=== PATIENT | male | born 1990 | race African-American/Black ===

== ENCOUNTER 2017-02-10 15:21 | Emergency (ER) | payer SELFPAY ==
[~2017-02-10] VITALS: Ht 182.9 cm; Wt 80.0 kg
[2017-02-10 15:23] VITALS: BP 118/73; PULSE 60; RESP 16; TEMP 97.5; O2SAT 99
--- NOTE | 2017-02-10 15:27 | PD ---
Physical Exam Time Seen by Provider: 15:27 Narrative 26 y/o male presents for evaluation of left hip pain for one week. He fell while playing basketball. Vital signs reviewed. Seen at triage desk. Awaiting bed placement. Data Data Last Documented VS Vital Signs Date Time Temp Pulse Resp B/P Pulse Ox O2 Delivery O2 Flow Rate FiO2 02/10/17 15:23 97.5 60 16 118/73 99 Room Air MDM Medical Record Reviewed: Yes Supervised Visit with LEIDY: Nirav Parks February 10, 2017 15:27
--- NOTE | 2017-02-10 16:14 | PD ---
HPI Chief Complaint: Hip Injury Time Seen by Provider: 16:10 Travel History International Travel<30 days: No Contact w/Intl Traveler<30days: No Traveled to known affect area: No History of Present Illness HPI Patient is a 26-year-old male presenting to for evaluation of left flank pain. Pain occurred as result of a fall one week ago. He denies any dysuria, nausea, vomiting, abdominal pain. He has not taken anything to relieve the pain. Pain is exacerbated with movement, relieved by rest. He also states it's painful when he tries to take a bowel movement due to positioning on the toilet seat. [facility] Past Medical History Medical History: Denies Significant Hx Social History Alcohol Use: No Tobacco Use: No Substance Use: No Allergies-Medications (Allergen,Severity, Reaction): Coded Allergies: No Known Allergies (Unverified , 02/10/17) Review of Systems Except as stated in HPI: all other systems reviewed are Neg Musculoskeletal: Positive: Myalgias, Pain Physical Exam Narrative GENERAL: Well-developed, well-nourished, alert male. Resting comfortably in no acute distress. SKIN: Focused skin assessment warm/dry. HEAD: Atraumatic. Normocephalic. EYES: Pupils equal and round. No scleral icterus. No injection or drainage. ENT: No nasal bleeding or discharge. Mucous membranes pink and moist. NECK: Trachea midline. No JVD. CARDIOVASCULAR: Regular rate and rhythm. No murmur appreciated. RESPIRATORY: No accessory muscle use. Clear to auscultation. Breath sounds equal bilaterally. GASTROINTESTINAL: Abdomen soft, non-tender, nondistended. Hepatic and splenic margins not palpable. MUSCULOSKELETAL: No obvious deformities. No clubbing. No cyanosis. No edema. Tenderness to palpation in left lower back/left flank. No rebound, no guarding. NEUROLOGICAL: Awake and alert. No obvious cranial nerve deficits. Motor grossly within normal limits. Normal speech. PSYCHIATRIC: Appropriate mood and affect; insight and judgment normal. Data Data Last Documented VS Vital Signs Date Time Temp Pulse Resp B/P Pulse Ox O2 Delivery O2 Flow Rate FiO2 02/10/17 15:23 97.5 60 16 118/73 99 Room Air Orders Urinalysis - C+S If Indicated (02/10/17 16:07) Ibuprofen (Motrin) (02/10/17 16:15) Cyclobenzaprine (Flexeril) (02/10/17 16:15) Labs Laboratory Tests Test 02/10/17 16:15 Urine Color YELLOW Urine Turbidity CLEAR Urine pH 6.0 Urine Specific [place] 1.021 Urine Protein NEG mg/dL Urine Glucose (UA) NEG mg/dL Urine Ketones NEG mg/dL Urine Occult Blood NEG Urine Nitrite NEG Urine Bilirubin NEG Urine Urobilinogen LESS THAN 2.0 MG/DL Urine Leukocyte Esterase NEG Urine WBC 1 /hpf Urine Mucus FEW /lpf Microscopic Urinalysis Comment CULT NOT INDICATED MDM Medical Decision Making Medical Screen Exam Complete: Yes Emergency Medical Condition: Yes Interpretation(s) Laboratory Tests Test 02/10/17 16:15 Urine Color YELLOW Urine Turbidity CLEAR Urine pH 6.0 Urine Specific [place] 1.021 Urine Protein NEG mg/dL Urine Glucose (UA) NEG mg/dL Urine Ketones NEG mg/dL Urine Occult Blood NEG Urine Nitrite NEG Urine Bilirubin NEG Urine Urobilinogen LESS THAN 2.0 MG/DL Urine Leukocyte Esterase NEG Urine WBC 1 /hpf Urine Mucus FEW /lpf Microscopic Urinalysis Comment CULT NOT INDICATED Vital Signs Date Time Temp Pulse Resp B/P Pulse Ox O2 Delivery O2 Flow Rate FiO2 02/10/17 15:23 97.5 60 16 118/73 99 Room Air Differential Diagnosis Muscle strain versus kidney stone versus other Narrative Course Patient is a 26-year-old male presenting to emergency evaluation of left lower back/flank pain. Abdominal exam is benign. Symptoms were ongoing for weeks since he fell playing basketball. Urinalysis is ordered to rule out hematuria. All systems unremarkable. Patient was given ibuprofen and Flexeril. He was encouraged to take medications as directed. He was encouraged to follow-up with her primary doctor return to emergency department for any new or worsening symptoms. Diagnosis Primary Impression: Muscle strain Referrals: Primary Care Physician Patient Instructions: General Instructions, Muscle Strain (ED) Additional Instructions: Follow-up with a primary doctor Medications as directed Apply warm moist heat to the affected area Return to emergency department for any new or worsening symptoms Med/Other Pt SpecificInfo: Prescription(s) given Scripts Cyclobenzaprine (Flexeril)10 Mg Tab10 Mg PO TID PRN (MUSCLE SPASM) 10 Days Ref 0 Prov:Lesli Alfaro 02/10/17 Ibuprofen 800 Mg [id number] Mg PO Q6HR PRN (PAIN) #40 TAB Ref 0 Prov:Lesli Alfaro 02/10/17 Disposition: 01 DISCHARGE HOME Condition: Stable Lesli Alfaro February 10, 2017 16:14
[2017-02-10] MEDS ORDERED: CYCLOBENZAPRINE HCL 10 MG TAB PO ONE (16:15)
[2017-02-10] MEDS ORDERED: IBUPROFEN 800 MG TAB PO ONE (16:15)
[2017-02-10 16:51] LABS: BLOOD, URINE NEG (NEG); COMMENT (UR) CULT NOT INDICATED; CULTURE IF INDICATED CULT NOT INDICATED; GLUCOSE,URINE NEG (NEG); KETONE, URINE NEG (NEG); MUCUS URINE FEW /lpf (OCC); NITRITE,URINE NEG (NEG); URINE COLOR YELLOW (YELLW/STRAW)
[2017-02-10] MEDS ORDERED: CYCL1TAB29 PO (16:58)
[2017-02-10] MEDS ORDERED: IBUP800T23 PO (16:58)
== END 2017-02-10 17:00 | disposition home or self-care (01) ==
LOC: NEPD 15:21
DX: M25.552 Pain in left hip (principal); S76.012A Strain of muscle, fascia and tendon of left hip, initial encounter; S39.012A Strain of muscle, fascia and tendon of lower back, initial encounter; W18.39XA Other fall on same level, initial encounter; Y93.67 Activity, basketball; Y92.838 Other recreation area as the place of occurrence of the external cause
CPT/HCPCS: 81001; 99283